=== PATIENT | male | born 1990 | race Caucasian/White ===

== ENCOUNTER 2020-07-24 13:51 | Emergency (ER) | payer OTHER ==
[~2020-07-24] VITALS: Ht 177.8 cm; Wt 102.1 kg
[2020-07-24 14:06] VITALS: BP 149/95
[2020-07-24 14:10] VITALS: BP 149/95
--- NOTE | 2020-07-24 14:11 | NUR ---
ARRIVAL PATIENT ARRIVED TO [facility] AMBULATORY, C/O OF LEFT HAND INJURY TODAY, PATIENT STATES HE WAS USING A POLE WHEN IT FELL HITTING HIM IN THE LEFT HAND, ABRASIONS NOTED TO THE LEFT HAND, DOCTOR WEST NOTIFIED OF PATIENT'S ARRIVAL.
--- NOTE | 2020-07-24 14:55 | DIREP ---
PROCEDURE:XRAY HAND MIN 3 VW-LT COMPARISON:None. INDICATIONS:Pain FINDINGS: BONES:Normal. JOINTS:Normal. SOFT TISSUES:Normal. OTHER:No additional findings. CONCLUSION:Normal examination. Dictated by: Maik Quach MD on 07/24/2020 at 02:53 PM
--- NOTE | 2020-07-24 14:58 | ER.PDOC ---
General Chief Complaint: Extremities Stated Complaint: LEFT HAND INJURY Time seen by MD: 14:53 Source: patient Exam Limitations: no limitations History of Present Illness Initial Comments Left hand pain after metal fell on it. Patient also has a laceration. Occurred: just prior to arrival Where: work Severity: moderate Context: direct blow Location of Injury: (L) hand Modifying Factors: pain on movement Allergies: Coded Allergies: No Known Allergies (Unverified , 07/24/20) Past Medical History Medical History: no pertinent history Surgical History: other Family History Significant Family History: no pertinent family hx Social History Smoking: non-smoker Alcohol Use: none Drug Use: none Review of Systems Constitutional: no symptoms reported EENTM: no symptoms reported Respiratory: no symptoms reported Cardiovascular: no symptoms reported Musculoskeletal: see HPI All Other Systems: Reviewed and Negative Physical Exam General Appearance: Alert, No Apparent Distress Hand: see diagram, tenderness (left hand without swelling or deformity) 1 - Lac Neuro: sensation nml, motor nml Vascular: no vascular compromise Tendons: tendon function nml Forearm/Elbow/Arm: uninjured above wrist Head/ENT: nml inspection, pharynx nml Neck/Back: nml inspection, non-tender Resp/CVS: no resp distress, lungs clear, heart sounds nml, reg. rate & rhythm Abdomen: non-tender, no organomegaly ED LACERATION WOUND REPAIR # of Wounds/Lacerations Presen: 1 Wound Location & Length (Requi: Left hand Wound Length (cm): 2 Anesthesia: 1% Lidocaine Volume Anesthetic (ccs): 5 Wound's Depth, Shape: irregular Irrigated w/ Saline (ccs): 20 Wound Debrided: minimal Suture Style: interupted Number of Sutures: 2 Sterile Dressing Applied?: Yes Results/Orders Results/Orders Orders - FREDI DODSON MD Xr Hand Lt (07/24/20 14:28) Lidocaine Hcl (Lidocaine 1% Vial) (07/24/20 15:50) Diph,Pertuss(Acell),Tet Vac/Pf (Adacel V (07/24/20 16:00) Vital Signs Date Time Temp Pulse Resp B/P (MAP) Pulse Ox O2 Delivery O2 Flow Rate FiO2 07/24/20 14:10 98.0 101 20 149/95 (113) 97 Room Air 07/24/20 14:06 98.0 101 20 97 07/24/20 14:06 98.0 101 20 07/24/20 14:06 98.0 101 20 149/95 (113) 97 Room Air EKG/XRAY/CT/US XRAY Comments: Normal left hand ER DEPART Departure Time of Disposition: 16:02 Disposition: 01 HOME / SELF CARE / HOMELESS Impression: Primary Impression: Injury, hand Additional Impressions: Contusion of hand, left Laceration of hand, left Condition: Stable Referrals: PCP,UNKNOWN (PCP) PRIMARY CARE PROVIDER Additional Instructions: Keflex Ibuprofen Apply Neosporin daily Remove sutures in 8 days at your PCP or ED Duration or Time Spent with Pa: 20 min Problem Qualifiers Primary Impression: Injury, hand Encounter type: initial encounter Laterality: left Qualified Codes: S69.92XA - Unspecified injury of left wrist, hand and finger(s), initial encounter Additional Impressions: Contusion of hand, left Encounter type: initial encounter Qualified Codes: S60.222A - Contusion of left hand, initial encounter Laceration of hand, left Encounter type: initial encounter Foreign body presence: without foreign body Qualified Codes: S61.412A - Laceration without foreign body of left hand, initial encounter FREDI DODSON MD Jul 24, 2020 14:58
[2020-07-24] MEDS ORDERED: LIDOCAINE 1% VIAL ONE (15:50)
[2020-07-24] MEDS ORDERED: ADACEL VIAL IM ONE ×2 (16:00→16:01)
[2020-07-24] MEDS ORDERED: TRIPLE ANTIBIOTIC OINTMENT TP ONE (16:03)
[2020-07-24 16:04] VITALS: BP 129/62
== END 2020-07-24 16:07 ==
LOC: ER 13:51
DX: S61.412A Laceration without foreign body of left hand, initial encounter (principal); W20.8XXA Other cause of strike by thrown, projected or falling object, initial encounter; Y93.89 Activity, other specified; Y92.89 Other specified places as the place of occurrence of the external cause; Y99.0 Civilian activity done for income or pay
CPT/HCPCS: 12001; 73130; 90471; 90715; 99283; J2001